=== PATIENT | male | born 1995 | race Caucasian/White ===

== ENCOUNTER 2017-01-19 20:49 | Emergency (ER) | payer OTHER ==
[~2017-01-19] VITALS: Ht 170.2 cm; Wt 72.7 kg
[2017-01-19] MEDS ORDERED: KETOROLAC 30 MG/ML VIAL (J1885) IV ONE (21:45)
[2017-01-19] MEDS ORDERED: CLINDAMYCIN 900 MG in APPROPRIATE DILUENT 1 EA IV ONE (21:45)
[2017-01-19] MEDS ORDERED: NS 1,000 ML IV ONE (21:45)
[2017-01-19] MEDS ORDERED: dexameTHASONE 20 MG/5 ML VIAL (J1100) IV ONE (21:45)
[2017-01-19 22:04] LABS: BASO % 0.2 % (0.0-1.0); EOS # 0.1 K/mm3 (0.0-0.50); EOS % 1.2 % (0.0-3.0); LARGE UNSTAINED CELL # 0.1 K/mm3 (0.0-0.4); LYMPH # 1.6 K/mm3 (1.5-6.5); LYMPH % 14.1 % (24.0-44.0); MEAN CORPUSCULAR HEMOGLOBIN 32.3 pg (27.0-33.0); MEAN CORPUSCULAR HGB CONC 34.8 g/dl (32.0-36.5); MEAN CORPUSCULAR VOLUME 92.9 fl (80.0-96.0); MONO # 0.8 K/mm3 (0.0-0.8); MONO % 7.1 % (0.0-5.0); NEUTROPHILS # 8.2 K/mm3 (1.8-7.7); NEUTROPHILS % 76.3 % (36.0-66.0); PLATELET COUNT, AUTOMATED 197 k/mm3 (150-450); RED CELL DISTRIBUTION WIDTH 12.8 % (11.5-14.5); WHITE BLOOD COUNT 10.8 K/mm3 (4.0-10.0)
[2017-01-19 22:30] LABS: ANION GAP 4 MEQ/L (8-16); BLOOD UREA NITROGEN 11 MG/DL (7-18); CALCIUM LEVEL 9.4 MG/DL (8.5-10.1); CARBON DIOXIDE LEVEL 31 MEQ/L (21-32); CHLORIDE LEVEL 104 MEQ/L (98-107); GLOMERULAR FILTRATION RATE > 60.0 (>60); GLUCOSE, FASTING 93 MG/DL (70-105); POTASSIUM SERUM 4.5 MEQ/L (3.5-5.1); SODIUM LEVEL 139 MEQ/L (136-145)
[2017-01-19] MEDS ORDERED: ISOVUE-370 76% 100ML VIAL (Q9967) As Ordered ONE (22:53)
--- NOTE | 2017-01-19 23:30 | REPUSA ---
CT of the soft tissues of the neck with contrast Clinical history: pain, Sore throat. Technique: Multiple axial CT images were obtained from the base of the skull to the upper thorax af ter administration of nonionic intravenous contrast. Coronal and sagittal reconstructions were also o btained. Findings: The visualized paranasal sinuses are clear. There is a focal area of soft tissue swelling in the left upper pharynx measuring 2.7 x 2.7 cm. This causes mass effect on the airway, displacing i t rightward. No focal fluid collection or masses identified at this site. The larynx shows no patholo gy. The visualized osseous structures are intact. The airway is patent. No focal mass is appreciated. There is no evidence of lymphadenopathy. The thyroid gland appears unremarkable. The superficial sof t tissues are unremarkable. The vascular structures demonstrate normal caliber and contour. Impression: Focal area of soft tissue swelling in the left upper periods, displacing the airway to th e right and causing moderate mass effect. Airway does remain patent however. The findings are consist ent with pharyngitis, without discrete evidence of abscess or mass. Follow-up is suggested as clinica lly indicated.
[2017-01-20 00:02] VITALS: BP 134/79
--- NOTE | 2017-01-20 10:32 | ED PDOC ---
Post-Departure Follow-Up ft truong koch faxed formal report of ct neck for fu Adrian Vargas MD Jan 20, 2017 10:32
== END 2017-01-20 00:03 | disposition home or self-care (01) ==
LOC: M ED 20:49
DX: J02.9 Acute pharyngitis, unspecified (principal); B34.9 Viral infection, unspecified; F17.200 Nicotine dependence, unspecified, uncomplicated; Z88.0 Allergy status to penicillin
CPT/HCPCS: 70491; 80048; 85025; 87040; 87880; 96374; 96375; 99283; J1100; J1885; Q9967

== ENCOUNTER 2017-04-20 16:40 | Emergency (ER) | payer OTHER ==
[~2017-04-20] VITALS: Ht 172.7 cm; Wt 72.7 kg
[2017-04-20 19:00] LABS: MEAN CORPUSCULAR HEMOGLOBIN 31.3 pg (27.0-33.0); MEAN CORPUSCULAR HGB CONC 34.5 g/dl (32.0-36.5); MEAN CORPUSCULAR VOLUME 90.7 fl (80.0-96.0); RED CELL DISTRIBUTION WIDTH 12.5 % (11.5-14.5); WHITE BLOOD COUNT 13.2 10^3/uL (4.0-10.0)
[2017-04-20] MEDS ORDERED: CLINDAMYCIN 600 MG in APPROPRIATE DILUENT 1 EA IV ONE (19:00)
[2017-04-20] MEDS ORDERED: dexameTHASONE 20 MG/5 ML VIAL (J1100) IV ONE (19:00)
[2017-04-20 19:10] LABS: INR 0.96
[2017-04-20 19:11] LABS: ANION GAP 7 MEQ/L (8-16); BLOOD UREA NITROGEN 9 MG/DL (7-18); CALCIUM LEVEL 9.7 MG/DL (8.5-10.1); CARBON DIOXIDE LEVEL 29 MEQ/L (21-32); CHLORIDE LEVEL 101 MEQ/L (98-107); CREATININE FOR GFR 0.74 MG/DL (0.70-1.30); GLOMERULAR FILTRATION RATE > 60.0 (>60); GLUCOSE, FASTING 87 MG/DL (70-105); POTASSIUM SERUM 4.1 MEQ/L (3.5-5.1); SODIUM LEVEL 137 MEQ/L (136-145)
[2017-04-20 19:59] VITALS: BP 140/89
[2017-04-20] MEDS ORDERED: CLEO300C2 PO (20:07)
[2017-04-20] MEDS ORDERED: NORCOTAB PO (20:07)
== END 2017-04-20 20:31 | disposition home or self-care (01) ==
LOC: M ED 16:40
DX: J03.90 Acute tonsillitis, unspecified (principal); Z88.0 Allergy status to penicillin
CPT/HCPCS: 80048; 85027; 85610; 87880; 96365; 96375; 99283; J1100